=== PATIENT | female | born 1990 | race Caucasian/White ===

== ENCOUNTER 2023-05-23 14:12 | Emergency (ER) | payer OTHER ==
[~2023-05-23] VITALS: Ht 165.1 cm; Wt 101.4 kg
[2023-05-23] MEDS ORDERED: LOSA25TA13 PO (14:34)
[2023-05-23] MEDS ORDERED: TEMA15CA2 PO (14:34)
[2023-05-23] MEDS ORDERED: XANA1TAB2 PO (14:34)
[2023-05-23] MEDS ORDERED: SERO1TAB PO (14:34)
[2023-05-23 15:11] LABS: BASO # 0.1 10^3/uL (0.0-0.2); BASO % 0.5 % (0.0-1.0); EOS # 0.3 10^3/uL (0.0-0.5); EOS % 2.2 % (0.0-3.0); HEMOGLOBIN 15.8 g/dl (12.0-15.5); LYMPH # 3.6 10^3/uL (1.5-5.0); LYMPH % 26.9 % (24.0-44.0); MEAN CORPUSCULAR HEMOGLOBIN 30.3 pg (27.0-33.0); MEAN CORPUSCULAR HGB CONC 34.3 g/dl (32.0-36.5); MEAN CORPUSCULAR VOLUME 88.1 fl (80.0-96.0); MONO # 0.6 10^3/uL (0.0-0.8); MONO % 4.4 % (2.0-8.0); NEUTROPHILS # 8.7 10^3/uL (1.5-8.5); NEUTROPHILS % 65.3 % (36.0-66.0); PLATELET COUNT, AUTOMATED 309 10^3/uL (150-450); RED BLOOD COUNT 5.22 10^6/uL (4.00-5.40); WHITE BLOOD COUNT 13.3 10^3/uL (4.0-10.0)
[2023-05-23 15:40] LABS: LIPASE 36 U/L (12-53)
[2023-05-23 15:42] LABS: ALBUMIN 3.7 G/DL (3.2-5.2); ALKALINE PHOSPHATASE 49 U/L (46-116); ALT/SGPT 49 U/L (7.0-40); AST/SGOT 30 U/L (<34); BILIRUBIN,DIRECT < 0.1 MG/DL (<0.4); BILIRUBIN,TOTAL 0.4 MG/DL (0.3-1.2); BLOOD UREA NITROGEN 13 MG/DL (9-23); CALCIUM LEVEL 8.8 MG/DL (8.5-10.1); CARBON DIOXIDE LEVEL 22 MMOL/L (20-31); CHLORIDE LEVEL 107 MMOL/L (98-107); CREATININE FOR GFR 0.69 MG/DL (0.55-1.30); GLOMERULAR FILTRATION RATE > 60.0 (>60); GLUCOSE, FASTING 150 MG/DL (60-100); POTASSIUM SERUM 3.9 MMOL/L (3.5-5.1); SODIUM LEVEL 137 MMOL/L (136-145); TOTAL PROTEIN 6.8 G/DL (5.7-8.2)
[2023-05-23] MEDS: PANTOPRAZOLE 40MG VIAL IV ONE (17:55)
[2023-05-23] MEDS: ONDANSETRON 4MG 2ML VIAL IV ONE (17:55)
[2023-05-23] MEDS ORDERED: ISOVUE-370 76% 100ML VIAL As Ordered ONE (17:55)
[2023-05-23] MEDS: MORPHINE 4 MG/ML 1ML VIAL IV ONE (17:56)
[2023-05-23] MEDS: GASTROGRAFIN SOLUTION 30ML PO SCH (18:17)
[2023-05-23 19:04] LABS: SALICYLATE LEVEL < 3.0 MG/DL (<30)
[2023-05-23] MEDS: METOCLOPRAMIDE INJ 10MG/2ML VIAL IV ONE (19:12)
[2023-05-23 19:37] LABS: INR 1.04; PARTIAL THROMBOPLASTIN TIME 26.2 SECONDS (24.8-34.2); PROTHROMBIN TIME 13.3 SECONDS (12.5-14.5)
[2023-05-23] MEDS: ACETAMINOPHEN *IV* 1,000 MG in IV 1 EA IV ONE (19:53)
[2023-05-23] MEDS: methylPREDNISolone 125MG 2ML VIAL IV ONE (20:20)
[2023-05-23] MEDS: diphenhydrAMINE 50MG/ML VIAL IV STA (20:20)
[2023-05-23] MEDS: NS 1,000 ML IV ONE (20:30)
[2023-05-23 21:05] LABS: MAGNESIUM LEVEL 1.6 MG/DL (1.8-2.4)
[2023-05-23 21:27] LABS: CK-MB VALUE MASS < 1.0 NG/ML (<3.6); CPK CREATINE PHOSPHOKINASE 56 U/L (34-145); MB/CK RELATIVE INDEX 1.78 (< OR =4)
[2023-05-23] MEDS: ALBUTEROL 90 MCG/ACT 8GM HFA INHALER INH ONE (21:30)
[2023-05-23 21:31] VITALS: BP 120/70; TEMP 98; O2SAT 98
[2023-05-23] MEDS: CETIRIZINE (ZyrTEC) 10 MG TAB PO ONE (21:35)
[2023-05-23] MEDS ORDERED: CARA1TAB6 PO (22:01)
[2023-05-23] MEDS ORDERED: PROT1TAB2 PO (22:01)
== END 2023-05-23 22:22 | disposition home or self-care (01) ==
LOC: M ED 14:12
DX: T50.995A Adverse effect of other drugs, medicaments and biological substances, initial encounter (principal); K92.0 Hematemesis; R10.13 Epigastric pain; R00.0 Tachycardia, unspecified; I45.81 Long QT syndrome; I45.10 Unspecified right bundle-branch block; K21.9 Gastro-esophageal reflux disease without esophagitis; F43.10 Post-traumatic stress disorder, unspecified; F41.9 Anxiety disorder, unspecified; Z91.041 Radiographic dye allergy status; Z88.0 Allergy status to penicillin; Z88.8 Allergy status to other drugs, medicaments and biological substances; Z87.891 Personal history of nicotine dependence; Z79.811 Long term (current) use of aromatase inhibitors; Z79.899 Other long term (current) drug therapy; Z79.810 Long term (current) use of selective estrogen receptor modulators (SERMs)
CPT/HCPCS: 71046; 74177; 80048; 80076; 80143; 82550; 82553; 83690; 83735; 85025; 85610; 85730; 87486; 87581; 87633; 87798; 93005; 96361; 96365; 96375; 99284; C9113; J0131; J1200; J2405; J2765; J2930; Q9963; Q9967